=== PATIENT | male | born 2000 | race Two or more races ===

== ENCOUNTER 2023-07-04 03:23 | Emergency (ER) | payer BC, OTHER ==
[~2023-07-04] VITALS: Ht 180.3 cm; Wt 106.8 kg
[2023-07-04 03:31] VITALS: TEMP 97.7
[2023-07-04 05:49] VITALS: BP 120/63; PULSE 65; RESP 17
[2023-07-04] MEDS ORDERED: IBUP-1492 PO (05:57)
[2023-07-04] MEDS ORDERED: HYDROCODONE/ACETAMINOPHEN 5-325 MG TABLET PO ONE (06:00)
== END 2023-07-04 06:35 | disposition home or self-care (01) ==
LOC: EMS 03:25
DX: S01.01XA Laceration without foreign body of scalp, initial encounter (principal); M25.561 Pain in right knee; X58.XXXA Exposure to other specified factors, initial encounter; Y93.89 Activity, other specified; Y92.89 Other specified places as the place of occurrence of the external cause; Y99.8 Other external cause status
CPT/HCPCS: 12002; 29515; 70450; 70486; 72125; 99284